=== PATIENT | male | born 2000 | race Hispanic/Latino ===

== ENCOUNTER 2020-08-18 19:17 | Emergency (ER) | payer BC ==
[2020-08-18] MEDS ORDERED: ACETAMINOPHEN 500 MG TAB ONE (20:07)
[2020-08-18] MEDS ORDERED: TETANUS & DIPHTHERIA TOX,ADULT 0.5 ML VIAL ONE (20:07)
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
[2020-08-18 21:58] VITALS: BP 142/66; TEMP 99; O2SAT 100
== END 2020-08-18 21:47 | disposition home or self-care (01) ==
LOC: ER 19:17
PROC: 0JQ00ZZ Repair Scalp Subcutaneous Tissue and Fascia, Open Approach (ICD-10-PCS; principal; 2020-08-18)
DX: S01.01XA Laceration without foreign body of scalp, initial encounter (principal); S02.2XXA Fracture of nasal bones, initial encounter for closed fracture; Y04.2XXA Assault by strike against or bumped into by another person, initial encounter; Y93.9 Activity, unspecified; Y92.89 Other specified places as the place of occurrence of the external cause; Z23 Encounter for immunization
CPT/HCPCS: 70450; 70486; 72125; 76377; 90471; 90714; 99284; G0390

== ENCOUNTER 2020-08-27 18:30 | Emergency (ER) | payer BC ==
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
--- NOTE | 2020-08-27 19:20 | EDPHYS ---
Physician Documentation [facility] Name: Suresh Walker Age: 19 yrs Sex: Male : 2000 Arrival Date: 08/27/2020 Time: 18:31 Bed 7 Private MD: GERARDO Physician Sridhar Ge HPI: 08/27 19:18 This 19 yrs old Male presents to ER via Ambulatory with complaints of Staple kb Removal. 19:18 The patient has bart on the scalp. Previous treatment: The patient was initially kb treated on August 18, 2020, the care was rendered at [facility], Treatment type: The patient's original treatment included bart. Sutures/bart progress: The patient has no c/o's. The wound is well-healing with no redness, swelling, discharge, or dehiscence reported. The patient has not experienced similar symptoms in the past. The patient has not recently seen a physician. 19:18 Pt reports he needs the bart removed from his head and also c/o pain, swelling and kb tenderness to right little finger. Historical: - Allergies: 18:36 No Known Allergies; ll1 - PSHx: 18:36 None; ll1 - Immunization history:: Flu vaccine is not up to date. - Social history:: Smoking status: Patient denies any tobacco usage or history of. ROS: 19:16 Constitutional: Negative for fever, chills, and weight loss, Cardiovascular: Negative kb for chest pain, palpitations, and edema, Respiratory: Negative for shortness of breath, cough, wheezing, and pleuritic chest pain, Abdomen/GI: Negative for abdominal pain, nausea, vomiting, diarrhea, and constipation, Neuro: Negative for headache, weakness, numbness, tingling, and seizure. 19:16 MS/extremity: Positive for injury or acute deformity, pain, swelling, tenderness, of the right little finger. 19:16 Skin: Positive for of the scalp, bart in place. Exam: 19:17 Constitutional: This is a well developed, well nourished patient who is awake, alert, kb and in no acute distress. Head/Face: Normocephalic, atraumatic. Chest/axilla: Normal chest wall appearance and motion. Nontender with no deformity. No lesions are appreciated. Cardiovascular: Regular rate and rhythm with a normal S1 and S2. No gallops, murmurs, or rubs. Normal PMI, no JVD. No pulse deficits. Respiratory: Lungs have equal breath sounds bilaterally, clear to auscultation and percussion. No rales, rhonchi or wheezes noted. No increased work of breathing, no retractions or nasal flaring. Abdomen/GI: Soft, non-tender, with normal bowel sounds. No distension or tympany. No guarding or rebound. No evidence of tenderness throughout. Neuro: Awake and alert, GCS 15, oriented to person, place, time, and situation. Cranial nerves II-XII grossly intact. Motor strength 5/5 in all extremities. Sensory grossly intact. Cerebellar exam normal. Normal gait. 19:17 Musculoskeletal/extremity: Extremities: grossly normal except: noted in the right little finger: pain, swelling, tenderness, ROM: intact in all extremities, Circulation is intact in all extremities. Sensation intact. 19:18 Skin: Wound recheck: Staple laceration closure: the wound is healing well, the edges kb are well approximated, no evidence of dehiscence, no drainage, no erythema, no swelling. Vital Signs: 18:34 BP 147 / 75; Pulse 64; Resp 16; Temp 98.2; Pulse Ox 99% ; Weight 95.25 kg; Height 6 ft. ll1 (182.88 cm); Pain 0/10; 18:34 Body Mass Index 28.48 (95.25 kg, 182.88 cm) ll1 Procedures: 19:15 Suture/Staple removal: Removed 34 bart, from scalp, site appears well healed, kb Patient tolerated well. MDM: 18:36 Patient medically screened. kb 19:15 Data reviewed: vital signs, nurses notes. Data interpreted: Pulse oximetry: on room air kb is 99 %. Interpretation: normal. Counseling: I had a detailed discussion with the patient and/or guardian regarding: the historical points, exam findings, and any diagnostic results supporting the discharge/admit diagnosis, radiology results, the need for outpatient follow up, a family practitioner, to return to the emergency department if symptoms worsen or persist or if there are any questions or concerns that arise at home. 08/27 18:49 Order name: Hand Right 3 View XRAY kb 08/27 19:17 Order name: Finger Splint; Complete Time: 19:24 kb Administered Medications: No medications were administered Disposition: 08/28 09:49 Co-signature as Attending Physician, Sridhar Ge MD I agree with the assessment and rocco plan of care. Disposition: 08/27/20 19:19 Discharged to Home. Impression: Displaced fracture of distal phalanx of right little finger, Encounter for removal of sutures - bart. - Condition is Stable. - Discharge Instructions: Suture Removal, Care After, Finger Fracture, [id number]. - Medication Reconciliation Form, Thank You Letter, Antibiotic Education, Prescription Opioid Use form. - Follow up: Emergency Department; When: As needed; Reason: Worsening of condition. Follow up: Private Physician; When: 2 - 3 days; Reason: Recheck today's complaints, Continuance of care, Re-evaluation by your physician. Signatures: Dispatcher [employer] EDMS Cierra Rodriguez, CASINO ACCOUNTANT-C CASINO ACCOUNTANT-Sridhar Adam MD MD cha Vicente, Ronaldo RN Annika Spring RN RN ll1 Corrections: (The following items were deleted from the chart) 08/27 19:34 19:19 08/27/2020 19:19 Discharged to Home. Impression: Displaced fracture of distal rv phalanx of right little finger; Encounter for removal of sutures - bart. Condition is Stable. Forms are Medication Reconciliation Form, Thank You Letter, Antibiotic Education, Prescription Opioid Use. Follow up: Emergency Department; When: As needed; Reason: Worsening of condition. Follow up: Private Physician; When: 2 - 3 days; Reason: Recheck today's complaints, Continuance of care, Re-evaluation by your physician. kb
--- NOTE | 2020-08-27 20:05 | RAD REPORT ---
EXAM DESCRIPTION: RAD - Hand Right 3 View - 08/27/2020 7:14 pm CLINICAL HISTORY: PAIN COMPARISON: No comparisons FINDINGS: A 4 millimeter fracture fragment is present at the base of the fifth distal phalanx. This is displaced dorsally approximately 2 mm. History indicates bart removed from the hand. No specifi c evidence for injury in this location. This is probably an ununited fracture fragment from remote [facility]. Correlation is needed with any localizing pain at the fifth DIP joint. Elsewhere no fractures seen. No bone or joint acute finding otherwise noted. No foreign body in the s oft tissues. IMPRESSION: No acute bone abnormality. No soft tissue abnormality evident. A 4 millimeter avulsion fracture base of the fifth distal phalanx is probably chronic. Follow-up can be made with clinical evidence for tendinous at the fifth DIP joint.
[2020-08-27 20:24] VITALS: BP 147/75; TEMP 98.2; O2SAT 99
== END 2020-08-27 19:34 | disposition home or self-care (01) ==
LOC: ER 18:30
PROC: 2W3JX1Z Immobilization of Right Finger using Splint (ICD-10-PCS; principal; 2020-08-27)
DX: S62.636A Displaced fracture of distal phalanx of right little finger, initial encounter for closed fracture (principal); Z48.02 Encounter for removal of sutures
CPT/HCPCS: 99283

== ENCOUNTER 2021-02-06 16:25 | Emergency (ER) | payer BC, OTHER ==
[2021-02-06] MEDS ORDERED: LIDOCAINE 1% MPF 5 ML VIAL ONE (18:06)
[2021-02-06] MEDS ORDERED: TETANUS & DIPHTHERIA TOX,ADULT 0.5 ML VIAL ONE (18:13)
--- NOTE | 2021-02-06 18:29 | ER ---
Nurse's Notes [facility] Name: Suresh Walker Age: 20 yrs Sex: Male : 2000 Arrival Date: 02/06/2021 Time: 16:29 Bed 23 Private MD: Diagnosis: Laceration without foreign body of left hand Presentation: 02/06 16:57 Chief complaint: Patient states: [facility] [place] while at work. <3 cm laceration, bleeding controlled. Coronavirus screen: Client denies travel out of the [place] in the last 14 days. At this time, the client does not indicate any symptoms associated with coronavirus-19. Ebola Screen: Patient denies travel to an Ebola-affected area in the 21 days before illness onset. Complicating Factors: There are no complicating factors for this patient. Initial Sepsis Screen: Does the patient meet any 2 criteria? No. Patient's initial sepsis screen is negative. Does the patient have a suspected source of infection? Yes: Skin breakdown/wound. Risk Assessment: Do you want to hurt yourself or someone else? Patient reports no desire to harm self or others. Onset of symptoms was February 06, 2021. 16:57 Method Of Arrival: Ambulatory ll1 16:57 Acuity: AIDAN 4 ll1 Historical: - Allergies: 16:56 No Known Allergies; ll1 - PMHx: 16:56 None; ll1 - PSHx: 16:56 None; ll1 - Immunization history:: Last tetanus immunization: unknown, Flu vaccine is not up to date. - Social history:: Smoking status: Patient denies any tobacco usage or history of. Screenin:00 Abuse screen: Denies threats or abuse. Denies injuries from another. Nutritional ss screening: No deficits noted. Tuberculosis screening: Never had TB. Fall Risk None identified. Assessment: 18:00 General: Appears in no apparent distress. comfortable, Behavior is calm, cooperative. ss Pain: Denies pain. Neuro: Level of Consciousness is awake, alert, obeys commands, Oriented to person, place, time, situation. Cardiovascular: Capillary refill < 3 seconds is brisk in bilateral fingers Patient's skin is warm and dry. Cardiovascular: Pulses are palpable in right radial artery and left radial artery. Respiratory: Airway is patent Respiratory effort is even, unlabored, Respiratory pattern is regular, symmetrical. GI: No signs and/or symptoms were reported involving the gastrointestinal system. EENT: Nares are clear Oral mucosa is moist. Derm: Skin is pink, warm \T\ dry. Musculoskeletal: Range of motion: intact in all extremities, Swelling absent. Injury Description: Laceration sustained to dorsum of left hand is 0.5 to 2.5 cm long, was sustained 30-60 minutes ago. is bleeding no active bleeding noted. Vital Signs: 16:57 Pulse 64; Resp 17; Temp 97.2; Pulse Ox 96% ; Weight 95.25 kg; Height 6 ft. 0 in. ll1 (182.88 cm); Pain 0/10; 16:57 Body Mass Index 28.48 (95.25 kg, 182.88 cm) ll1 ED Course: 16:29 Patient arrived in ED. mr 16:56 Arm band placed on. ll1 16:58 Triage completed. ll1 17:44 [facility]C [facility]. kb 17:44 Patric Gray MD is Attending Physician. kb 17:54 Priyanka Aguilar, CEDRIC is Primary Nurse. ss 18:00 Patient has correct armband on for positive identification. Bed in low position. Call ss light in reach. 18:38 Dressings: Adaptic X 1; dorsal aspect of proximal phalanx of left middle finger and jp3 dorsum of left hand non-adherent dressing x 1 dorsum of left hand. Dressings: wrapped with coban. Aluminum finger splint applied to dorsum of left hand. Wound care: was. 19:07 No provider procedures requiring assistance completed. Patient did not have IV access ss during this emergency room visit. Administered Medications: 17:57 Drug: Tetanus-Diphtheria Toxoid Adult 0.5 ml {Car Restorer: [employer]. Exp: ss 02/08/2022. Lot #: [id number]. } Route: IM; Site: left deltoid; 18:30 Follow up: Response: No adverse reaction ss 18:20 Drug: Lidocaine (1 %) 1 vials {Note: administered by VLAD Norton.} Volume: 5 ml; Route: ss Infiltration; Outcome: 18:28 Discharge ordered by . kb 19:07 Discharged to home ambulatory. ss 19:07 Condition: good 19:07 Discharge instructions given to patient, Instructed on discharge instructions, follow up and referral plans. Demonstrated understanding of instructions, follow-up care. 19:07 Patient left the ED. Signatures: Cierra Rodriguez FNP-C FNP-Fabiana Doran mr Priyanka Aguilar, RN RN ss Kishore Norris jp3 Annika Barrera RN RN ll1
--- NOTE | 2021-02-06 18:29 | EDPHYS ---
Physician Documentation [facility] Name: Suresh Walker Age: 20 yrs Sex: Male : 2000 Arrival Date: 02/06/2021 Time: 16:29 Bed 23 Private MD: ED Physician Patric Gray HPI: 02/06 18:26 This 20 yrs old Male presents to ER via Ambulatory with complaints of kb Laceration To Hand. 18:26 The patient has a laceration related to: accidentally cut with knife occurred at work, kb and there are no complicating factors. The injury was accidental. The laceration(s) is(are) located on the dorsum of left hand. Onset: The symptoms/episode began/occurred just prior to arrival. Associated signs and symptoms: The patient has no apparent associated signs or symptoms. The patient has not experienced similar symptoms in the past. The patient has not recently seen a physician. Historical: - Allergies: 16:56 No Known Allergies; ll1 - PMHx: 16:56 None; ll1 - PSHx: 16:56 None; ll1 - Immunization history:: Last tetanus immunization: unknown, Flu vaccine is not up to date. - Social history:: Smoking status: Patient denies any tobacco usage or history of. ROS: 18:22 Constitutional: Negative for fever, chills, and weight loss, MS/Extremity: Negative for kb injury and deformity, Neuro: Negative for headache, weakness, numbness, tingling, and seizure. 18:22 MS/extremity: Positive for laceration, of the dorsum of left hand. Exam: 18:25 Constitutional: This is a well developed, well nourished patient who is awake, alert, kb and in no acute distress. Head/Face: Normocephalic, atraumatic. MS/ Extremity: Pulses equal, no cyanosis. Neurovascular intact. Full, normal range of motion. Neuro: Awake and alert, GCS 15, oriented to person, place, time, and situation. Moves all extremities. Normal gait. 18:25 Skin: injury, laceration(s), the wound is approximately 3 cm(s), of the dorsum of left hand, that can be described as clean, no foreign body, linear, without bleeding. Vital Signs: 16:57 Pulse 64; Resp 17; Temp 97.2; Pulse Ox 96% ; Weight 95.25 kg; Height 6 ft. 0 in. ll1 (182.88 cm); Pain 0/10; 16:57 Body Mass Index 28.48 (95.25 kg, 182.88 cm) ll1 Laceration: 18:26 Wound Repair of 3cm ( 1.2in ) subcutaneous laceration to dorsum of left hand. Linear kb shaped.. Distal neuro/vascular/tendon intact. Anesthesia: Wound infiltrated with 2 mls of 1% lidocaine. Wound prep: Extensive cleansing with hibiclenz by me, Wound irrigation with saline by me. Skin closed with 4 4-0 Prolene using simple sutures and sterile technique. Skin closed with 1 5-0 Vicryl using simple sutures and sterile technique. Patient tolerated well. MDM: 17:46 Patient medically screened. kb 18:24 Data reviewed: vital signs, nurses notes. Data interpreted: Pulse oximetry: on room air kb is 96 %. Interpretation: normal. Counseling: I had a detailed discussion with the patient and/or guardian regarding: the historical points, exam findings, and any diagnostic results supporting the discharge/admit diagnosis, the need for outpatient follow up, a family practitioner, to return to the emergency department if symptoms worsen or persist or if there are any questions or concerns that arise at home. 02/06 17:56 Order name: Prolene, Sutures; Complete Time: 18:29 kb 02/06 17:56 Order name: Dressing - Wound; Complete Time: 18:30 kb 02/06 17:56 Order name: Gloves, Sterile; Complete Time: 18:30 kb 02/06 17:56 Order name: Setup Suture Tray; Complete Time: 18:30 kb 02/06 18:27 Order name: Finger Splint; Complete Time: 18:29 kb Administered Medications: 17:57 Drug: Tetanus-Diphtheria Toxoid Adult 0.5 ml {Director Of Recruitment And Admissions: [employer]. Exp: ss 02/08/2022. Lot #: [id number]. } Route: IM; Site: left deltoid; 18:30 Follow up: Response: No adverse reaction 18:20 Drug: Lidocaine (1 %) 1 vials {Note: administered by VLAD Norton.} Volume: 5 ml; Route: ss Infiltration; Disposition: 02/07 06:50 Co-signature as Attending Physician, Patric Gray MD I agree with the assessment and kdr plan of care. Disposition: 02/06/21 18:28 Discharged to Home. Impression: Laceration without foreign body of left hand. - Condition is Stable. - Discharge Instructions: Laceration Care, Adult, [id number]. - Medication Reconciliation Form, Thank You Letter, Antibiotic Education, Prescription Opioid Use form. - Follow up: Emergency Department; When: As needed; Reason: Worsening of condition. Follow up: Private Physician; When: 2 - 3 days; Reason: Recheck today's complaints, Continuance of care, Re-evaluation by your physician. Signatures: Cierra Rodriguez, ELECTRICIAN WIRING-C ELECTRICIAN WIRING-Patric Camacho MD MD [facility] Priyanka Aguilar RN RN ss Annika Barrera RN RN ll1 Corrections: (The following items were deleted from the chart) 02/06 19:07 18:28 02/06/2021 18:28 Discharged to Home. Impression: Laceration without foreign body ss of left hand. Condition is Stable. Forms are Medication Reconciliation Form, Thank You Letter, Antibiotic Education, Prescription Opioid Use. Follow up: Emergency Department; When: As needed; Reason: Worsening of condition. Follow up: Private Physician; When: 2 - 3 days; Reason: Recheck today's complaints, Continuance of care, Re-evaluation by your physician. kb
[2021-02-06 19:12] VITALS: TEMP 97.2; O2SAT 96
== END 2021-02-06 19:07 | disposition home or self-care (01) ==
LOC: ER 16:25
PROC: 0JQK0ZZ Repair Left Hand Subcutaneous Tissue and Fascia, Open Approach (ICD-10-PCS; principal; 2021-02-06)
DX: S61.412A Laceration without foreign body of left hand, initial encounter (principal); W26.0XXA Contact with knife, initial encounter; Y93.89 Activity, other specified; Y92.89 Other specified places as the place of occurrence of the external cause; Y99.8 Other external cause status; Z23 Encounter for immunization
CPT/HCPCS: 90471; 90714; 99283